=== PATIENT | male | born 2000 | race Caucasian/White ===

== ENCOUNTER 2025-07-22 13:27 | Emergency (ER) | payer SELFPAY ==
[2025-07-22 13:38] VITALS: BP 191/118; PULSE 92; RESP 20; TEMP 36.9; O2SAT 98; BMI 26.4
--- NOTE | 2025-07-22 13:44 | XR_ITS ---
FINAL REPORT CLINICAL HISTORY: Nonspecific cough FINDINGS: A portable view of the chest is obtained. There is no prior exam for comparison. Cardiac and mediastinal silhouettes are normal. The lungs are clear. There is no pleural effusion or pneumothorax. IMPRESSION: No acute process on this portable exam. Reviewed, Interpreted and Dictated by Kristan Beth MD Transcribed by Lotus Alvares Authenticated and [facility]
--- NOTE | 2025-07-22 13:44 | ED_ITS ---
<Statement entered by Stan Meek MD - 07/22/25 15:55> I consulted the KARELY, and we discussed the complexity of the problems being addressed. I approved the treatment and management plan for this patient's care in the emergency department, thus performing a substantial portion of the medical decision making. Will MD Fantasma Discharge Plan Disposition Patient Disposition: Home, Self-Care Condition: Good Referrals Follow up/Referrals: Cayden Rivero MD [Primary Care Provider, Internal Medicine] - See instructions Activity Restrictions/Add. Instructions Additional Instructions/Restrictions: You were evaluated on an emergency basis. It is very important that you follow- up with your primary care provider and any specialist who we discussed within the next 2 days in order to better assess your health more comprehensively. For example, incidental findings on imaging or laboratory results that were performed today may be discovered, which do not require immediate medical care, but may impact your health in the future. If your symptoms worsen or persist, please return to the emergency department immediately for reassessment. Take all medications as prescribed. In queue for allowing me to participate in your health care, and I hope you feel better soon. Clinical Impressions Clinical Impression: Acute bronchitis Instructions Patient Instructions: Acute Bronchitis Print Language Print Language: Wallisian Discharge ED Provider: Stan Meek General Adult HPI General Chief complaint: Cough Stated complaint: SOA, wheezing Time Seen by Provider: 07/22/25 13:44 Mode of Arrival: Ambulatory Source of Information: Patient Description of Symptoms (Recalled from ER Triage Doc. by RN): patient presents to ED for cough that has lasted a month that is productive with green mucous. patient also states he feels SOA at times, but denies feeling this way this this time. History of Present Illness HPI narrative: 24-year-old male presents emergency department complaints of cough for the past month. 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 Related Data Allergies Allergy/AdvReac Type Severity Reaction Status Date / Time NO KNOWN ALLERGIES - NKA Allergy Unknown Uncoded 10/17/17 15:13 [facility] Disclaimer: The information contained in this section may have been updated after the patient was seen, as this information can be updated by other users. Social History Smoking Status: Current some day smoker alcohol intake: never current occupational status: employed Travel in the last 8 weeks?: None ROS Obtained: Yes other Respiratory Respiratory: Reports cough and Reports wheezing Allergic/Immunologic Allergic/Immunologic: Reports wheezing Physical Exam Narrative Physical exam: General: Awake, aware, in no acute distress HEENT: Normocephalic, no evidence of trauma CV: RRR, no murmurs, rubs, or gallops Pulm: Mild expiratory wheezes bilaterally. No respiratory distress or increased work of breathing ABD: Nontender, no swelling, guarding, or rebound tenderness Psych, appropriate mood and affect General General appearance: alert Respiratory Respiratory exam: Present wheezes Cardiovascular Cardiovascular exam: Present regular rate Neurological Exam Neurological exam: Present alert Medical Decision Making Medical Records Screening: Per USPSTF and CDC recommendations, given the prevalence of disease in our [facility], it is our hospital?s policy to screen for HIV and viral Hepatitis for all patients aged 18 and over and those with ongoing risk factors. Barry Inquiry Pt receiving controlled substance: No Vital Signs: 07/22/25 13:38 Temperature 98.5 F Temperature Source Temporal Artery Scan Pulse Rate [Right Radial] 92 H Respiratory Rate 20 Blood Pressure [Right Arm] 191/118 H Blood Pressure Mean [Right Arm] 142 Blood Pressure Source [Right Arm] Automatic Cuff Blood Pressure Position [Right Arm] Sitting 02 Sat by Pulse Oximetry 98 Oxygen Delivery Method Room Air Lab Data Lab Results 07/22/25 13:41: SARS-CoV-2 (PCR) Not detected, Influenza A Untype (PCR) Not detected, Influenza Type B (PCR) Not detected Orders (Tests/Meds): ED MEDICATIONS Discontinued Medications Generic Name Dose Route Start Last Admin Trade Name Sallie PRN Reason Stop Dose Admin Albuterol Sulfate 2 puff 07/22/25 13:45 07/22/25 14:06 Albuterol-Hfa 90mcg/Puff Inhaler 8gm IH 07/22/25 13:46 2 puff ONCE ONE Administration Miscellaneous 1 unit 07/22/25 13:44 07/22/25 14:06 Aerochamber/Optihaler MC 07/22/25 13:45 1 unit ONCE ONE Administration ORDERS Category Date Time Status XR chest portable Stat Exams 07/22/25 13:44 Taken Rapid PCR Covid and Flu A/B Stat Lab 07/22/25 13:41 Completed Medical Decision Narrative: Initial impression of presenting illness: 24-year-old male presents to the emergency department complaints of cough for 1 month. He denies shortness of breath, fever, chest pain. He states he does smoke. 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 Differential diagnosis includes but is not limited to: COVID, pneumonia, asthma, COPD, bronchitis Patient arrives hemodynamically stable, afebrile, without respiratory distress with vital signs interpreted by myself. Initial physical exam reveals mild expiratory wheezes bilaterally. Patient without increased work of breathing or signs of respiratory distress. Rest of exam is unremarkable Initial diagnostic plan: COVID and flu swab, chest x-ray, albuterol inhaler for wheezing Results from initial plan were reviewed and interpreted by myself, pertinent positives include: COVID and flu swabs were negative. Chest x-ray was unremarkable for acute findings. Interventions in the ED: Patient was given albuterol inhaler for relief of his wheezing Patient was made aware of the results and the findings, upon reevaluation patient has remained stable throughout stay, symptoms have improved. Upon reevaluation patient's wheezing is diminished and he states he feels much better. Disposition: Reviewed finding today's workup with patient informed no acute abnormalities were noted. Advised patient that we will treat with bronchitis. Encouraged him to continue with the albuterol inhaler 2 puffs every 4-6 hours as needed. Advised him to establish care with a primary care provider for further evaluation of his symptoms with possible pulmonology referral as he does smoke and has regular exposure to paint fumes. Instructed him to return to the emergency department any new or worsening symptoms. Patient is agreeable to plan of care. Patient made aware of findings and had a detailed discussion with symptomatic care and return precautions, patient voiced understanding. Critical Care Critical Care Time Critical Care Time: No
[2025-07-22 13:48] LABS: Coronavirus 19, PCR Not Detected (NotDetected); Influenza A, PCR Not Detected (NotDetected); Influenza B, PCR Not Detected (NotDetected)
[2025-07-22] MEDS: AEROCHAMBER/OPTIHALER 1 UNIT MC (14:06)
[2025-07-22] MEDS: ALBUTEROL-HFA 90MCG/PUFF INHALER 8GM 2 PUFF IH (14:06)
[2025-07-22 15:06] VITALS: BP 118/75; PULSE 70; RESP 20; TEMP 36.8; O2SAT 97
== END 2025-07-22 15:06 | disposition home or self-care (01) ==
PROVIDERS: Emergency Provider Student in an Organized Health Care Education/Training Program; PCP Internal Medicine Adolescent Medicine
DX: J20.9 Acute bronchitis, unspecified (principal); R06.02 Shortness of breath
CPT/HCPCS: 71045; 87636; 99282; 99283

== ENCOUNTER 2025-09-21 10:00 | Emergency (ER) | payer SELFPAY ==
[2025-09-21] VITALS (11 sets, daily range): BP systolic 113–148; BP diastolic 89–108; PULSE 61–87; RESP 18; TEMP 36.7; O2SAT 97–100; BMI 25.7
--- NOTE | 2025-09-21 10:04 | ED_ITS ---
<Statement entered by Remi Wise MD - 09/21/25 12:14> Remi Wise MD: I was consulted by the KARELY, and we discussed the complexity of the problems being addressed. I approved the treatment and management plan for this patient's care in the emergency department, thus performing a substantive portion of the medical decision making. Discharge Plan Disposition Patient Disposition: Home, Self-Care Condition: Good Referrals Follow up/Referrals: Cayden Rivero MD [Primary Care Provider, Internal Medicine] - See instructions Activity Restrictions/Add. Instructions Additional Instructions/Restrictions: You were evaluated on an emergency basis. It is very important that you follow- up with your primary care provider and any specialist who we discussed within the next 2 days in order to better assess your health more comprehensively. For example, incidental findings on imaging or laboratory results that were performed today may be discovered, which do not require immediate medical care, but may impact your health in the future. If your symptoms worsen or persist, please return to the emergency department immediately for reassessment. Take all medications as prescribed. In queue for allowing me to participate in your health care, and I hope you feel better soon. Clinical Impressions Clinical Impression: Gastritis Instructions Patient Instructions: Gastritis Print Language Print Language: Kuwaiti Discharge ED Provider: Remi Wise General Adult HPI <Rosario Garcia - Last Filed: 09/21/25 11:41> General Chief complaint: Nausea/Vomiting/Diarrhea Stated complaint: vomiting blood, loss vision, poss siezure Time Seen by Provider: 09/21/25 10:04 History of Present Illness HPI narrative: 24-year-old male presents emergency department with concerns for possible seizure and hematemesis. Patient states he was at a [employer] party last night and drink excessively. He reports that he had numerous episodes of vomiting last night. He states when he woke up this morning he did have 1 episode of vomiting that had what appeared to be bright red blood. His girlfriend states when they were driving in the car when patient stated he did not feel well. She states patient then had dilated pupils with jerking movements. She states he never stopped talking to her or had any bowel or bladder incontinence. Upon arrival to the emergency department patient states he feels fine and has no complaints. Related Data Allergies Allergy/AdvReac Type Severity Reaction Status Date / Time No Known Allergies Allergy Verified 09/21/25 10:13 PFSH <Rosario Lizer - Last Filed: 09/21/25 11:41> [facility] Disclaimer: The information contained in this section may have been updated after the patient was seen, as this information can be updated by other users. Social History Smoking Status: Current every day smoker alcohol intake: never current occupational status: employed Travel in the last 8 weeks?: None Have you lived/traveled outside [place] in past 30 days?: No Contact w/someone who lives/traveled outside US past 30 days?: No Exposure to someone with infectious disease in past 14 days?: No Do you have a fever (greater than 100.4 F or 38 C)?: No Have you tested positive for COVID-19?: No Exposed to someone with COVID-19 in past 14 days?: No Do you have a sore throat?: No Do you have a cough?: No Do you have any weakness?: No Do you have any diarrhea?: No Are you experiencing any unusual bleeding?: No Do you have any muscle aches/pain?: No Do you have any abdominal pain?: No Are you experiencing loss of taste or smell?: No <Rosario Garcia - Steve Filed: 09/21/25 11:41> ROS Obtained: Yes other Eyes Eyes: Reports change in vision Gastrointestinal Gastrointestingal: Reports hematemesis Physical Exam <Rosario Garcia - Steve Filed: 09/21/25 11:41> Narrative Physical exam: General: Awake, aware, in no acute distress HEENT: Normal cephalic, no evidence of trauma, PERRLA, EOMI CV: RRR, no murmurs, rubs, or gallops Pulm: Wheezing bilaterally ABD: Patient with normal active bowel sounds in all quadrants. Patient does report mild tenderness on palpation of his umbilical area. Neuro: ANO x 4, GCS 15, no focal deficits noted Psych: Appropriate mood and affect General General appearance: alert Respiratory Respiratory exam: Present normal lung sounds bilaterally Cardiovascular Cardiovascular exam: Present regular rate Neurological Exam Neurological exam: Present alert Medical Decision Making <Rosario Wilson Filed: 09/21/25 11:41> Medical Records Screening: Per USPSTF and CDC recommendations, given the prevalence of disease in our region, it is our hospital?s policy to screen for HIV and viral Hepatitis for all patients aged 18 and over and those with ongoing risk factors. Vital Signs: 09/21/25 10:05 09/21/25 10:08 09/21/25 10:10 Temperature 98.1 F Temperature Source Oral Pulse Rate 80 87 Pulse Rate [Right] 85 Respiratory Rate 18 18 Blood Pressure 148/108 H 145/104 H Blood Pressure [Left Arm] 133/98 H Blood Pressure Mean 114 Blood Pressure Mean [Left Arm] 109 Blood Pressure Source [Left Arm] Automatic Cuff Blood Pressure Position [Left Arm] Supine 02 Sat by Pulse Oximetry 97 97 98 Oxygen Delivery Method Room Air Room Air 09/21/25 10:20 09/21/25 10:22 09/21/25 10:49 Temperature Temperature Source Pulse Rate 80 81 Pulse Rate [Right] Respiratory Rate 18 18 Blood Pressure 133/98 H 137/99 H Blood Pressure [Left Arm] Blood Pressure Mean 113 116 Blood Pressure Mean [Left Arm] Blood Pressure Source [Left Arm] Blood Pressure Position [Left Arm] 02 Sat by Pulse Oximetry 98 98 98 Oxygen Delivery Method Room Air Lab Data Lab Results 09/21/25 10:11: WBC 11.7 H, RBC 5.45, Hgb 15.9, Hct 45.6, MCV 83.7, MCH 29.2, MCHC 34.9, RDW 12.4, Plt Count 279, MPV 12.1 H, Neut % (Auto) 67.2, Lymph % (Auto) 23.8, [place] % (Auto) 5.7, Eos % (Auto) 2.4, Baso % (Auto) 0.6, Neut # (Auto) 7.9 H, Lymph # (Auto) 2.8, [place] # (Auto) 0.7, Eos # (Auto) 0.3, Baso # (Auto) 0.1, PT 11.9, INR 1.08, APTT 23.4, Sodium 138, Potassium 3.8, Chloride 101, Carbon Dioxide 26, Anion Gap 14.8, BUN 12, Creatinine 0.80, Estimated Creat Clear 172, Estimated GFR 121, Est GFR ( Amer) 146, Glucose 104 H, Calcium 10.0, Magnesium 2.0, Total Bilirubin 0.7, AST 27, ALT 22, Alkaline Phosphatase 64, Total Protein 8.9 H, Albumin 5.4 H, Globulin 3.5 H, Albumin/Globulin Ratio 1.5, Lipase 41, Plasma/Serum Alcohol < 10 09/21/25 10:51: Urine Color Yellow, Urine Appearance Clear, Urine pH 8.5, Ur Specific [place] 1.010, Urine Protein Trace, Urine Glucose (UA) Negative, Urine Ketones Negative, Urine Blood Negative, Urine Nitrate Negative, Urine Bilirubin Negative, Urine Urobilinogen 0.2, Ur Leukocyte Esterase Negative 09/21/25 10:11 09/21/25 10:11 Orders (Tests/Meds): ED MEDICATIONS Generic Name Dose Route Start Last Admin Trade Name Freq PRN Reason Stop Dose Admin Sodium Chloride 10 ml 09/21/25 10:35 09/21/25 11:01 Sodium Chloride 0.9% 10ml Vial IV 10/21/25 10:34 10 ml NEEDED PRN Administration dilute protonix Sodium Chloride 10 ml 09/21/25 10:43 09/21/25 10:46 Sodium Chloride 0.9% 10ml Syr (Rad Only) IV 10/21/25 10:42 10 ml NEEDED PRN Administration Maintain IV Site Discontinued Medications Generic Name Dose Route Start Last Admin Trade Name Freq PRN Reason Stop Dose Admin Sodium Chloride 1,000 mls @ 999 mls/hr 09/21/25 10:19 09/21/25 11:36 Sod Chlor 0.9% 1000ml Bag IV 09/21/25 11:19 Infused .Q1H1M ONE Infusion Iopamidol 75 ml 09/21/25 10:43 09/21/25 10:46 Iopamidol-370 (76%);100ml Bottle IV 09/21/25 10:44 75 ml ONCE ONE Administration Pantoprazole Sodium 40 mg 09/21/25 10:35 09/21/25 11:01 Pantoprazole 40mg Vial IV 09/21/25 10:36 40 mg ONCE ONE Administration Sodium Chloride 50 ml 09/21/25 10:43 09/21/25 10:46 0.9 % Sodium Chloride 50 Ml Vial IV 09/21/25 10:44 50 ml ONCE ONE Administration ORDERS Category Date Time Status CT angio abd/pel - GI Bleed Stat Cat Scan 09/21/25 10:34 Completed Blood alcohol [Ethyl Alcohol] Stat Lab 09/21/25 10:11 Completed CBC w/Auto Diff [Complete Blood Count Auto Diff] Stat Lab 09/21/25 10:11 Completed CMP [Comprehensive Metabolic Panel] Stat Lab 09/21/25 10:11 Completed HIV Combo Stat Lab 09/21/25 10:11 Received Hepatitis C Ab Qual. W/ RFX Stat Lab 09/21/25 10:11 Received Lipase Stat Lab 09/21/25 10:11 Completed Magnesium Stat Lab 09/21/25 10:11 Completed PT/PTT Stat Lab 09/21/25 10:11 Completed Urinalysis and Microscopic Stat Lab 09/21/25 10:51 Results EKG Request [ECG Request] Stat Y 09/21/25 11:26 Ordered Medical Decision Narrative: Initial impression of presenting illness: 24-year-old male presents emergency department with complaints of vomiting blood and seizure-like activity. Patient reports he was at a [employer] party last night with excessive drinking. He states that he had numerous episodes of vomiting last night. He reports this morning he did have 1 episode of vomiting that had what appeared to be bright red blood. Patient's girlfriend states while they were driving in the car and he informed her that he did not feel well and then had an episode where his pupils were dilated, he had jerking movements, and he reported vision changes however he denies loss of consciousness or bowel or bladder incontinence. His girlfriend states that he talked to her through this entire episode. Upon arrival to the emergency department patient states he feels fine and has no complaints. Differential diagnosis includes but is not limited to: Gastritis, Emilia-Santana tear, varices, dehydration, electrolyte abnormality, intoxication, near syncopal episode Patient arrives hemodynamically stable, afebrile, without respiratory distress with vital signs interpreted by myself. Initial physical exam reveals mild tenderness to palpation of the umbilical area with normal active bowel sounds. Patient does have mild wheezing bilaterally. Rest of exam is unremarkable. Initial diagnostic plan: CT of abdomen pelvis with IV contrast, laboratory studies including urinalysis, normal saline bolus for hydration Results from initial plan were reviewed and interpreted by myself, pertinent positives include: Laboratory studies were nonactionable. CT of abdomen pelvis with IV contrast was also unremarkable for acute findings. EKG shows sinus rhythm with no ischemic changes. Patient's Glascow-Blatchford bleeding score shows patient was at low risk. Interventions in the ED: Patient was given normal saline bolus for hydration. He was also given oral fluids and is tolerating well. Patient was made aware of the results and the findings, upon reevaluation patient has remained stable throughout stay, symptoms have improved. Upon evaluation patient is able to tolerate oral intake without difficulty. His vital signs remained stable. Patient continues to deny any current complaints. Disposition: Reviewed findings today's workup with patient and informed patient no acute abnormalities were noted. Vies patient that we will give him contact information for GI provider Dr. Cabrera and recommended he contact their office this week to schedule outpatient follow-up. Courage patient to refrain from alcohol use. Instructed him to return immediately to the emergency department if he develops any new or worsening symptoms including black tarry stools, vomiting bright red blood, lightheaded, dizzy. Patient was agreeable to plan of care. Patient made aware of findings and had a detailed discussion with symptomatic care and return precautions, patient voiced understanding. <Remi Wise MD - Last Filed: 09/21/25 11:34> Barry Inquiry Pt receiving controlled substance: No Vital Signs: 09/21/25 10:05 09/21/25 10:08 09/21/25 10:10 Temperature 98.1 F Temperature Source Oral Pulse Rate 80 87 Pulse Rate [Right] 85 Respiratory Rate 18 18 Blood Pressure 148/108 H 145/104 H Blood Pressure [Left Arm] 133/98 H Blood Pressure Mean 114 Blood Pressure Mean [Left Arm] 109 Blood Pressure Source [Left Arm] Automatic Cuff Blood Pressure Position [Left Arm] Supine 02 Sat by Pulse Oximetry 97 97 98 Oxygen Delivery Method Room Air Room Air 09/21/25 10:20 09/21/25 10:22 09/21/25 10:49 Temperature Temperature Source Pulse Rate 80 81 Pulse Rate [Right] Respiratory Rate 18 18 Blood Pressure 133/98 H 137/99 H Blood Pressure [Left Arm] Blood Pressure Mean 113 116 Blood Pressure Mean [Left Arm] Blood Pressure Source [Left Arm] Blood Pressure Position [Left Arm] 02 Sat by Pulse Oximetry 98 98 98 Oxygen Delivery Method Room Air Lab Data Lab Results 09/21/25 10:11: WBC 11.7 H, RBC 5.45, Hgb 15.9, Hct 45.6, MCV 83.7, MCH 29.2, MCHC 34.9, RDW 12.4, Plt Count 279, MPV 12.1 H, Neut % (Auto) 67.2, Lymph % (Auto) 23.8, [place] % (Auto) 5.7, Eos % (Auto) 2.4, Baso % (Auto) 0.6, Neut # (Auto) 7.9 H, Lymph # (Auto) 2.8, [place] # (Auto) 0.7, Eos # (Auto) 0.3, Baso # (Auto) 0.1, PT 11.9, INR 1.08, APTT 23.4, Sodium 138, Potassium 3.8, Chloride 101, Carbon Dioxide 26, Anion Gap 14.8, BUN 12, Creatinine 0.80, Estimated Creat Clear 172, Estimated GFR 121, Est GFR ( Amer) 146, Glucose 104 H, Calcium 10.0, Magnesium 2.0, Total Bilirubin 0.7, AST 27, ALT 22, Alkaline Phosphatase 64, Total Protein 8.9 H, Albumin 5.4 H, Globulin 3.5 H, Albumin/Globulin Ratio 1.5, Lipase 41, Plasma/Serum Alcohol < 10 09/21/25 10:51: Urine Color Yellow, Urine Appearance Clear, Urine pH 8.5, Ur Specific [place] 1.010, Urine Protein Trace, Urine Glucose (UA) Negative, Urine Ketones Negative, Urine Blood Negative, Urine Nitrate Negative, Urine Bilirubin Negative, Urine Urobilinogen 0.2, Ur Leukocyte Esterase Negative Orders (Tests/Meds): ED MEDICATIONS Generic Name Dose Route Start Last Admin Trade Name Freq PRN Reason Stop Dose Admin Sodium Chloride 10 ml 09/21/25 10:35 09/21/25 11:01 Sodium Chloride 0.9% 10ml Vial IV 10/21/25 10:34 10 ml NEEDED PRN Administration dilute protonix Sodium Chloride 10 ml 09/21/25 10:43 09/21/25 10:46 Sodium Chloride 0.9% 10ml Syr (Rad Only) IV 10/21/25 10:42 10 ml NEEDED PRN Administration Maintain IV Site Discontinued Medications Generic Name Dose Route Start Last Admin Trade Name Freq PRN Reason Stop Dose Admin Sodium Chloride 1,000 mls @ 999 mls/hr 09/21/25 10:19 09/21/25 11:36 Sod Chlor 0.9% 1000ml Bag IV 09/21/25 11:19 Infused .Q1H1M ONE Infusion Iopamidol 75 ml 09/21/25 10:43 09/21/25 10:46 Iopamidol-370 (76%);100ml Bottle IV 09/21/25 10:44 75 ml ONCE ONE Administration Pantoprazole Sodium 40 mg 09/21/25 10:35 09/21/25 11:01 Pantoprazole 40mg Vial IV 09/21/25 10:36 40 mg ONCE ONE Administration Sodium Chloride 50 ml 09/21/25 10:43 09/21/25 10:46 0.9 % Sodium Chloride 50 Ml Vial IV 09/21/25 10:44 50 ml ONCE ONE Administration ORDERS Category Date Time Status CT angio abd/pel - GI Bleed Stat Cat Scan 09/21/25 10:34 Completed Blood alcohol [Ethyl Alcohol] Stat Lab 09/21/25 10:11 Completed CBC w/Auto Diff [Complete Blood Count Auto Diff] Stat Lab 09/21/25 10:11 Completed CMP [Comprehensive Metabolic Panel] Stat Lab 09/21/25 10:11 Completed HIV Combo Stat Lab 09/21/25 10:11 Received Hepatitis C Ab Qual. W/ RFX Stat Lab 09/21/25 10:11 Received Lipase Stat Lab 09/21/25 10:11 Completed Magnesium Stat Lab 09/21/25 10:11 Completed PT/PTT Stat Lab 09/21/25 10:11 Completed Urinalysis and Microscopic Stat Lab 09/21/25 10:51 Results EKG Request [ECG Request] Stat Y 09/21/25 11:26 Ordered ECG Data Tracing #1: Independently interpreted by me rate is 64, rhythm is regular, benign early repolarization in the lateral leads, QTc 394. Critical Care <Rosario Garcia - Last Filed: 09/21/25 11:41> Critical Care Time Critical Care Time: No
--- OUTSIDE RECORDS SUMMARY | 2025-09-21 10:06 | XMS_ITS ---
Author Organization Unknown ENCOUNTERS Encounter Performer Location Date Diagnosis Diagnosis Status Emergency Remi Wise [facility] [address] [place] [address] [id number] Pre Admit Ricky Ley [facility] [address] [place] [address] [id number] Pre Admit [facility] [address] [place] [address] [id number] Emergency [facility] [address] [place] [address] [id number] TINO *Note: Encounters from your own facility or health system may be excluded. Allergies, Adverse Reactions, Alerts Allergen Type Severity Identification Date Medications Name Date Quantity Days Supplied GPI Number
[2025-09-21] MEDS: 0.9 % SODIUM CHLORIDE 1000ML 1,000 ML 999 ML IV (10:34)
--- NOTE | 2025-09-21 10:34 | CT_ITS ---
PROCEDURE INFORMATION: Exam: CTA Abdomen and Pelvis With Contrast Exam date and time: 09/21/2025 10:42 AM Age: 24 years old Clinical indication: Other: Hematemesis TECHNIQUE: Imaging protocol: Computed tomographic angiography of the abdomen and pelvis with contrast. Exam focused on the arteries. 3D rendering (Not supervised by radiologist): MIP and/or 3D reconstructed images were created by the technologist. Radiation optimization: All CT scans at this facility use at least one of these dose optimization techniques: automated exposure control; mA and/or kV adjustment per patient size (includes targeted exams where dose is matched to clinical indication); or iterative reconstruction. Contrast material: ISOVUE; Contrast volume: 75 ml; Contrast route: INTRAVENOUS (IV); COMPARISON: CR XR CHEST PORTABLE 07/22/2025 2:13 PM FINDINGS: Aorta: No aortic aneurysm. No aortic dissection. Celiac and mesenteric arteries: No occlusion or significant stenosis. Renal arteries: No occlusion or significant stenosis. Right iliac arteries: No occlusion or significant stenosis. Left iliac arteries: No occlusion or significant stenosis. Liver: No mass. Gallbladder and biliary ducts: Unremarkable. No calcified stones. No ductal dilation. Pancreas: Unremarkable. No mass. No ductal dilation. Spleen: Unremarkable. No splenomegaly. Adrenal glands: Unremarkable. No mass. Kidneys and ureters: Unremarkable. No solid mass. No hydronephrosis. Stomach and bowel: Unremarkable. No obstruction. No mucosal thickening. Appendix: No evidence of acute appendicitis. Punctate appendicolith along the appendiceal tip. Intraperitoneal space: Unremarkable. No free air. No significant fluid collection. Lymph nodes: Unremarkable. No enlarged lymph nodes. Urinary bladder: Unremarkable. No mass. Reproductive: Unremarkable as visualized. Bones/joints: No acute fracture. Soft tissues: Unremarkable. IMPRESSION: No CT evidence of gastrointestinal hemorrhage.
[2025-09-21 10:37] LABS: Hematocrit 45.6 % (42.0-52.0); Hemoglobin 15.9 g/dL (14.1-18.0); Immature Granulocytes % 0.3 %; Mean Corpuscular HGB Conc 34.9 g/dL (31.8-35.4); Mean Corpuscular Hemoglobin 29.2 pg (27.0-31.2); Mean Corpuscular Volume 83.7 fl (80-94); Nucleated Red Blood Cells % 0 %; Platelet Count 279 K/mm3 (142-424); Red Blood Count 5.45 M/mm3 (4.60-6.20); Red Cell Distribution Width-SD 37.0 fL; White Blood Count 11.7 K/mm3 (4.8-10.8)
[2025-09-21 10:41] LABS: Activated Partial Thrombo Time 23.4 seconds (22.8-30.6); INR 1.08 (0.9-1.1); Prothrombin Time 11.9 seconds (10.1-12.5)
[2025-09-21] MEDS: IOPAMIDOL-370 (76%);100ML BOTTLE 75 ML IV (10:46)
[2025-09-21] MEDS: SODIUM CHLORIDE 0.9% 10ML SYR (RAD ONLY) 10 ML IV (10:46)
[2025-09-21] MEDS: 0.9 % SODIUM CHLORIDE 50 ML VIAL IV (10:46)
--- NOTE | 2025-09-21 10:47 | PC.NURSE ---
I ACCOMPANIED THE PT AMBULATING BACK TO HIS ROOM FROM CT. PT HOOKED BACK UP TO VITALS MONITOR. I TOOK HIM AND HIS VISITOR A WATER. NO NEW COMPLAINTS. NO OTHER NEEDS VOICED. CALL [facility] IN [place].
[2025-09-21 10:58] LABS: Microscopic, Urine URINE MICROSCOPIC (MICROSCOPIC)
[2025-09-21 10:58] LABS: Alanine Aminotransferase 22 U/L (12-78); Albumin Level 5.4 g/dl (3.5-5.0); Albumin/Globulin Ratio 1.5 (1.1-1.8); Alkaline Phosphatase 64 U/L (38-126); Anion Gap 14.8 mEq/L (5-15); Aspartate Amino Transferase 27 U/L (17-59); Bilirubin,Total 0.7 mg/dl (0.2-1.3); Blood Urea Nitrogen 12 mg/dl (9-20); Calcium 10.0 mg/dl (8.4-10.2); Carbon Dioxide 26 mmol/L (22.0-30.0); Chloride 101 mmol/L (98-107); Creatinine Clearance Estimated 172 mL/min (50-200); Creatinine,Serum 0.80 mg/dl (0.66-1.25); Estimated Glomerular Filt Rate 121 ml/min (>60); GFR (African American) 146 ML/MIN (>60); Globulin 3.5 g/dL (1.3-3.2); Glucose 104 mg/dl (74-100); Lipase 41 U/L (23-300); Magnesium 2.0 mg/dl (1.6-2.3); Potassium 3.8 mmoL/L (3.5-5.1); Sodium 138 mmol/L (136-145); Total Protein,Serum 8.9 g/dl (6.3-8.2)
[2025-09-21] MEDS: PANTOPRAZOLE 40MG VIAL 40 MG IV (11:01)
[2025-09-21] MEDS: SODIUM CHLORIDE 0.9% 10ML VIAL 10 ML IV (11:01)
[2025-09-21 11:04] LABS: Bilirubin,Urine Negative (Negative); Color,Urine YELLOW (Yellow); Glucose,Urine (UA) Negative (Negative); Ketones,Urine Negative (Negative); Leukocyte Esterase,Urine Negative (Negative); PH,Urine 8.5 (5.0-8.5); Protein,Urine TRACE (Negative); Specific Gravity, Urine 1.010 (1.005-1.030); Urobilinogen,Urine 0.2 EU/dl (0.2)
--- NOTE | 2025-09-21 11:27 | ECG_ITS ---
APPROVED REPORT Exam: Resting ECG HR:64 bpm ECG Measurements Heart Rate 64 AXES TX 123 P 68 QRSd 108 QRS 90 QT 385 T 46 QTc 394 Conclusion SINUS RHYTHM WITH SINUS ARRHYTHMIA NONSPECIFIC ST ELEVATION [0.05+ mV ST ELEVATION] BORDERLINE ECG Electronically signed by : LEX FORBES, 09/25/2025 13:55:47
[2025-09-21 12:08] LABS: Amorphous Sediment,Urine Trace /lpf; Bacteria,Urine Trace /lpf; Squamous Epithelial Cell,Urine Occasional #/hpf (0-5); WBC,Urine Occasional #/hpf (0-3)
[2025-09-22 09:49] LABS: Hepatitis C Ab Qual. W/ RFX NEGATIVE (Negative)
== END 2025-09-21 12:16 | disposition home or self-care (01) ==
PROVIDERS: Nurse Practitioner Family; Emergency Provider Emergency Medicine; PCP Internal Medicine Adolescent Medicine
DX: K29.70 Gastritis, unspecified, without bleeding (principal); R11.2 Nausea with vomiting, unspecified; F17.210 Nicotine dependence, cigarettes, uncomplicated
CPT/HCPCS: 74174; 80053; 80320; 81001; 83690; 83735; 85025; 85610; 85730; 86803; 87389; 93005; 96361; 96374; 99285; J2470; J7030; Q9967